=== PATIENT | male | born 1945 | race Caucasian/White ===

== ENCOUNTER 2017-08-26 13:53 | Inpatient (IN) | payer MEDICARE, BC, OTHER ==
[2017-08-26] MEDS: SOD CHLORIDE 0.9% 1,000 ML IV (16:53)
[2017-08-26] MEDS: KETOROLAC 15 MG INJ IV (16:53)
[2017-08-26 16:55] LABS: ADD MAN DIFF? NO
[2017-08-26 16:58] LABS: BASOPHIL # 0.1 10^3/ul (0.0-0.1); BASOPHILS % 0.3 % (0.0-2.0); EOSINOPHILS % 0.1 % (0.0-7.0); HEMATOCRIT 48.1 % (42.0-52.0); HEMOGLOBIN 15.5 g/dl (14.0-18.0); LYMPHOCYTES # 1.5 10^3/ul (0.8-2.9); LYMPHOCYTES % 9.4 % (15.0-51.0); MEAN CORPUSCULAR HEMOGLOBIN 27.9 pg (29.0-33.0); MEAN CORPUSCULAR HGB CONC 32.2 g/dl (32.0-37.0); MEAN CORPUSCULAR VOLUME 86.7 fl (82.0-101.0); MEAN PLATELET VOLUME 11.2 fl (7.4-10.4); MONOCYTE # 0.9 10^3/ul (0.3-0.9); MONOCYTES % 5.8 % (0.0-11.0); NEUTROPHIL # 13.1 10^3/ul (1.6-7.5); NEUTROPHILS % 83.7 % (39.0-77.0); PLATELET COUNT 189 10^3/UL (140-415); RED BLOOD COUNT 5.55 10^6/ul (4.70-6.10); RED CELL DISTRIBUTION WIDTH 14.2 % (11.5-14.5)
[2017-08-26 16:58] LABS: WHITE BLOOD COUNT 15.7 10^3/ul (4.8-10.8)
[2017-08-26 17:20] LABS: ANION GAP 16 (8-16); BLOOD UREA NITROGEN 21 mg/dl (7-20); CALCIUM 9.7 mg/dl (8.4-10.2); CARBON DIOXIDE 25 mmol/L (21-31); CHLORIDE 103 mmol/L (97-110); CREATININE 1.01 mg/dl (0.61-1.24); GLUCOSE 161 mg/dl (70-220); POTASSIUM 4.2 mmol/L (3.5-5.1); SODIUM 140 mmol/L (135-144)
[2017-08-26] MEDS ORDERED: ONDANSETRON 4 MG TAB PO (18:30)
[2017-08-26] MEDS ORDERED: NACL 0.9% 3 ML SYG IV (18:30)
[2017-08-26 18:32] LABS: INR 1.04; PROTIME 13.7 Sec (11.9-14.9); PT RATIO 1.1
[2017-08-26] MEDS: HYDROmorphONE 1 MG/ML SYG IV (18:36)
[2017-08-26] MEDS: ONDANSETRON 4 MG INJ IV (18:36)
[2017-08-26] MEDS ORDERED: GLUCAGON 1 MG INJ IM (19:00)
[2017-08-26] MEDS ORDERED: GLUCOSE GEL 15 GRAM TUBE PO ×2 (19:00)
[2017-08-26] MEDS ORDERED: GLUCOSE GEL 15 GRAM TUBE BUCCAL (19:00)
[2017-08-26] MEDS ORDERED: DEXTROSE 50% 50 ML SYRINGE IV ×2 (19:00)
[2017-08-26] MEDS: HYDROCODONE/APAP (5/325) TAB PO (19:51)
[2017-08-26] MEDS: HYDROmorphONE 0.5 MG/0.5 ML SYG IV (19:51)
[2017-08-26 20:09] LABS: ALKALINE PHOSPHATASE 79 IU/L (42-121)
[2017-08-26 20:41] LABS: PROSTATE SPECIFIC ANTIGEN 3.2 ng/ml (0.0-4.0)
[2017-08-26] MEDS: INSULIN ASPART [NOVOLOG] 3 ML PEN SC (21:00)
[2017-08-27] MEDS: ACCU-CHEK XX (02:00)
[2017-08-27] MEDS: HYDROCODONE/APAP (5/325) TAB PO (03:15)
[2017-08-27] MEDS: HYDROmorphONE 0.5 MG/0.5 ML SYG IV (05:50)
[2017-08-27 06:34] LABS: ADD MAN DIFF? NO
[2017-08-27 06:43] LABS: WHITE BLOOD COUNT 10.1 10^3/ul (4.8-10.8)
[2017-08-27 06:43] LABS: BASOPHIL # 0.1 10^3/ul (0.0-0.1); BASOPHILS % 0.6 % (0.0-2.0); EOSINOPHILS # 0.2 10^3/ul (0.0-0.5); HEMATOCRIT 43.9 % (42.0-52.0); HEMOGLOBIN 14.1 g/dl (14.0-18.0); LYMPHOCYTES # 1.4 10^3/ul (0.8-2.9); LYMPHOCYTES % 13.6 % (15.0-51.0); MEAN CORPUSCULAR HEMOGLOBIN 27.8 pg (29.0-33.0); MEAN CORPUSCULAR HGB CONC 32.1 g/dl (32.0-37.0); MEAN CORPUSCULAR VOLUME 86.4 fl (82.0-101.0); MEAN PLATELET VOLUME 11.7 fl (7.4-10.4); MONOCYTES % 9.7 % (0.0-11.0); NEUTROPHIL # 7.5 10^3/ul (1.6-7.5); NEUTROPHILS % 73.7 % (39.0-77.0); PLATELET COUNT 176 10^3/UL (140-415); RED BLOOD COUNT 5.08 10^6/ul (4.70-6.10); RED CELL DISTRIBUTION WIDTH 14.1 % (11.5-14.5)
[2017-08-27 07:00] LABS: HEMOGLOBIN A1C 6.8 % (0-5.9)
[2017-08-27 07:12] LABS: ALBUMIN 4.6 g/dl (3.3-4.9)
[2017-08-27 07:14] LABS: ANION GAP 12 (8-16); BLOOD UREA NITROGEN 18 mg/dl (7-20); CALCIUM 8.7 mg/dl (8.4-10.2); CARBON DIOXIDE 28 mmol/L (21-31); CHLORIDE 103 mmol/L (97-110); CREATININE 1.06 mg/dl (0.61-1.24); GLUCOSE 189 mg/dl (70-220); MAGNESIUM 1.9 mg/dl (1.7-2.5); PHOSPHORUS 3.5 mg/dl (2.5-4.9); POTASSIUM 4.1 mmol/L (3.5-5.1); SODIUM 139 mmol/L (135-144)
[2017-08-27] MEDS: INSULIN ASPART [NOVOLOG] 3 ML PEN SC ×4 (08:41→20:55)
[2017-08-27] MEDS: ENOXAPARIN 40 MG/0.4 ML SYG SC (08:44)
[2017-08-27] MEDS: HYDROmorphONE 1 MG/ML SYG IV ×3 (10:26→18:49)
[2017-08-27] MEDS: INFLUENZA VIRUS VACCINE 0.5 ML (DISPENSING) IM* (21:52)
[2017-08-28] MEDS: ACCU-CHEK XX (02:36)
[2017-08-28 05:31] LABS: PROTEIN, TOTAL 6.3 g/dL (6.1-8.1)
[2017-08-28] MEDS: INSULIN ASPART [NOVOLOG] 3 ML PEN SC ×4 (06:08→20:35)
[2017-08-28 06:33] LABS: ADD MAN DIFF? NO
[2017-08-28 06:40] LABS: WHITE BLOOD COUNT 11.4 10^3/ul (4.8-10.8)
[2017-08-28 06:40] LABS: BASOPHIL # 0.1 10^3/ul (0.0-0.1); BASOPHILS % 0.6 % (0.0-2.0); EOSINOPHILS # 0.2 10^3/ul (0.0-0.5); EOSINOPHILS % 1.8 % (0.0-7.0); HEMATOCRIT 46.8 % (42.0-52.0); HEMOGLOBIN 15.1 g/dl (14.0-18.0); LYMPHOCYTES # 1.2 10^3/ul (0.8-2.9); LYMPHOCYTES % 10.2 % (15.0-51.0); MEAN CORPUSCULAR HEMOGLOBIN 27.9 pg (29.0-33.0); MEAN CORPUSCULAR HGB CONC 32.3 g/dl (32.0-37.0); MEAN CORPUSCULAR VOLUME 86.5 fl (82.0-101.0); MEAN PLATELET VOLUME 11.6 fl (7.4-10.4); MONOCYTE # 1.1 10^3/ul (0.3-0.9); MONOCYTES % 9.7 % (0.0-11.0); NEUTROPHIL # 8.8 10^3/ul (1.6-7.5); NEUTROPHILS % 77.3 % (39.0-77.0); PLATELET COUNT 175 10^3/UL (140-415); RED BLOOD COUNT 5.41 10^6/ul (4.70-6.10); RED CELL DISTRIBUTION WIDTH 14.2 % (11.5-14.5)
[2017-08-28] MEDS ORDERED: HETASTARCH 6% NACL 500 ML BAG (07:00)
[2017-08-28 07:09] LABS: ANION GAP 11 (8-16); BLOOD UREA NITROGEN 17 mg/dl (7-20); CALCIUM 8.7 mg/dl (8.4-10.2); CARBON DIOXIDE 27 mmol/L (21-31); CHLORIDE 104 mmol/L (97-110); GLUCOSE 198 mg/dl (70-220); PHOSPHORUS 3.1 mg/dl (2.5-4.9); SODIUM 138 mmol/L (135-144)
[2017-08-28] MEDS: HYDROmorphONE 1 MG/ML SYG IV (08:33)
[2017-08-28] MEDS: ENOXAPARIN 40 MG/0.4 ML SYG SC (09:00)
[2017-08-28] MEDS ORDERED: PROPOFOL 20 ML ×2 (12:46→15:18)
[2017-08-28] MEDS ORDERED: ACETAMINOPHEN 1000MG/100ML IV 100 ML (12:46)
[2017-08-28] MEDS ORDERED: CEFAZOLIN 1 GM INJ (12:46)
[2017-08-28] MEDS ORDERED: MIDAZOLAM 1 MG/ML 2 ML INJ (12:47)
[2017-08-28] MEDS ORDERED: morphine SULFATE/PF (10 MG/10 ML) INJ (12:47)
[2017-08-28] MEDS ORDERED: ROPIVACAINE 0.5 % 30 ML VIAL (12:47)
[2017-08-28 13:43] LABS: CREATININE, RANDOM URINE 172 mg/dL (20-370); PROTEIN/CREATININE RATIO 99 mg/g creat (22-128)
[2017-08-28] MEDS ORDERED: PHENYLephrine (100 MCG/ML) 5ML SYG ×2 (14:20→15:16)
[2017-08-28] MEDS: POLYMYXIN/BACITRACIN 1L IRRIG IRR (14:33)
[2017-08-28] MEDS ORDERED: TRANEXAMIC ACID 1,000 MG/10 ML VIAL (14:49)
[2017-08-28] MEDS ORDERED: ONDANSETRON 4 MG INJ (14:56)
[2017-08-28] MEDS ORDERED: KETOROLAC 30 MG INJ (14:56)
[2017-08-28] MEDS ORDERED: DEXAMETHASONE 4 MG/ML 1 ML INJ (14:56)
[2017-08-28] MEDS ORDERED: METOCLOPRAMIDE 10 MG INJ (14:56)
[2017-08-28] MEDS ORDERED: METOCLOPRAMIDE 10 MG INJ IV (15:30)
[2017-08-28] MEDS ORDERED: hydrALAzine 20 MG INJ IV (15:30)
[2017-08-28] MEDS ORDERED: OXYCODONE/ACETAMINOPHEN (5/325) TAB PO ×2 (15:30)
[2017-08-28] MEDS ORDERED: ACETAMINOPHEN 500 MG TAB PO (15:30)
[2017-08-28] MEDS ORDERED: NALOXONE (0.4 MG/ML) INJ IV ×2 (15:30)
[2017-08-28] MEDS ORDERED: HYDROmorphONE 0.5 MG/0.5 ML SYG IV ×3 (15:30→16:30)
[2017-08-28] MEDS ORDERED: ALBUMIN HUMAN 5% 250 ML IV (15:30)
[2017-08-28] MEDS ORDERED: LABETALOL HCL 20MG INJ IV (15:30)
[2017-08-28] MEDS ORDERED: HYDROmorphONE (0.2 MG/ML) 10ML SYG IV ×3 (15:30)
[2017-08-28] MEDS ORDERED: DIPHENHYDRAMINE 50 MG INJ IV (15:30)
[2017-08-28] MEDS ORDERED: NALBUPHINE HCL (10 MG/1 ML) INJ IV (15:30)
[2017-08-28] MEDS ORDERED: FENTAnyl 50 MCG/ML VIAL IV ×3 (15:30)
[2017-08-28] MEDS ORDERED: morphine 2 MG INJ IV ×3 (15:30→16:30)
[2017-08-28] MEDS ORDERED: ONDANSETRON 4 MG INJ IV (15:30)
[2017-08-28] MEDS ORDERED: EPHEDrine SULFATE 50 MG/5 ML SYG IV (15:30)
[2017-08-28] MEDS ORDERED: HYDROCODONE/APAP (5/325) TAB PO (15:30)
[2017-08-28 15:56] LABS: ABNORMAL PROTEIN BAND 1 0.4 g/dL (NONE DETECTED); ALBUMIN 3.8 g/dL (3.8-4.8); ALPHA-1-GLOBULINS 0.3 g/dL (0.2-0.3); ALPHA-2-GLOBULINS 0.6 g/dL (0.5-0.9); BETA 2 GLOBULINS 0.3 g/dL (0.2-0.5); BETA GLOBULINS 0.4 g/dL (0.4-0.6); GAMMA GLOBULINS 0.9 g/dL (0.8-1.7)
[2017-08-28] MEDS ORDERED: NACL 0.9% 3 ML SYG IV (16:00)
[2017-08-28] MEDS: SOD CHLORIDE 0.9% 1,000 ML IV (16:00)
[2017-08-28] MEDS: DIPHENHYDRAMINE 50 MG INJ IV (16:33)
[2017-08-28] MEDS: MEPERIDINE 25 MG INJ IV (16:47)
[2017-08-28] MEDS: ONDANSETRON 4 MG INJ IV (16:48)
[2017-08-28] MEDS ORDERED: CEFAZOLIN 1 GM/50 ML (PMX) 50 ML IVPB (17:00)
[2017-08-28 17:18] LABS: ADD MAN DIFF? NO
[2017-08-28 17:25] LABS: BASOPHIL # 0.1 10^3/ul (0.0-0.1); BASOPHILS % 0.4 % (0.0-2.0); EOSINOPHILS # 0.2 10^3/ul (0.0-0.5); EOSINOPHILS % 1.2 % (0.0-7.0); HEMATOCRIT 44.3 % (42.0-52.0); LYMPHOCYTES # 0.9 10^3/ul (0.8-2.9); LYMPHOCYTES % 7.7 % (15.0-51.0); MEAN CORPUSCULAR HEMOGLOBIN 28.1 pg (29.0-33.0); MEAN CORPUSCULAR HGB CONC 31.6 g/dl (32.0-37.0); MEAN CORPUSCULAR VOLUME 88.8 fl (82.0-101.0); MEAN PLATELET VOLUME 11.8 fl (7.4-10.4); MONOCYTE # 0.6 10^3/ul (0.3-0.9); MONOCYTES % 4.6 % (0.0-11.0); NEUTROPHIL # 10.3 10^3/ul (1.6-7.5); NEUTROPHILS % 85.5 % (39.0-77.0); PLATELET COUNT 169 10^3/UL (140-415); RED BLOOD COUNT 4.99 10^6/ul (4.70-6.10)
[2017-08-28 17:40] LABS: ANION GAP 15 (8-16); BLOOD UREA NITROGEN 18 mg/dl (7-20); CALCIUM 7.8 mg/dl (8.4-10.2); CARBON DIOXIDE 24 mmol/L (21-31); CHLORIDE 107 mmol/L (97-110); CREATININE 1.18 mg/dl (0.61-1.24); GLUCOSE 154 mg/dl (70-220); POTASSIUM 4.1 mmol/L (3.5-5.1); SODIUM 142 mmol/L (135-144)
[2017-08-28] MEDS: CEFAZOLIN 1 GM/50 ML (PMX) 50 ML IVPB (20:23)
[2017-08-29] MEDS: ACCU-CHEK XX (02:00)
[2017-08-29] MEDS: morphine 2 MG INJ IV (05:07)
[2017-08-29] MEDS: CEFAZOLIN 1 GM/50 ML (PMX) 50 ML IVPB ×2 (05:08→12:09)
[2017-08-29] MEDS: SOD CHLORIDE 0.9% 1,000 ML IV (05:25)
[2017-08-29 08:07] LABS: ADD UMIC YES; UR ASCORBIC ACID 20 mg/dL (NEGATIVE); UR BACTERIA FEW /HPF (NONE SEEN); UR BILIRUBIN (Dip) NEGATIVE (NEGATIVE); UR BLOOD (Dip) 2+ mg/dL (NEGATIVE); UR CLARITY CLEAR (CLEAR); UR COLOR YELLOW (YELLOW); UR GLUCOSE (Dip) 3+ mg/dL (NEGATIVE); UR KETONES (Dip) NEGATIVE (NEGATIVE); UR LEUKOCYTE ESTERASE (Dip) NEGATIVE Leu/ul (NEGATIVE); UR NITRITE (Dip) NEGATIVE (NEGATIVE); UR RBC 14 /HPF (0-5); UR SPECIFIC GRAVITY (Dip) 1.029 (1.003-1.030); UR TOTAL PROTEIN (Dip) 1+ mg/dl (NEGATIVE); UR UROBILINOGEN (Dip) NEGATIVE (NEGATIVE); UR WBC 2 /HPF (0-5)
[2017-08-29] MEDS: INSULIN ASPART [NOVOLOG] 3 ML PEN SC ×4 (08:09→21:07)
[2017-08-29] MEDS: ENOXAPARIN 40 MG/0.4 ML SYG SC (08:10)
[2017-08-29] MEDS ORDERED: BISACODYL (EC) 5 MG TAB PO (13:00)
[2017-08-29] MEDS: DOCUSATE SODIUM 100 MG CAP PO (21:06)
[2017-08-29] MEDS: ACETAMINOPHEN 325 MG TAB PO (21:08)
[2017-08-29] MEDS: METOPROLOL 25 MG TAB PO (23:28)
[2017-08-30] MEDS: ACCU-CHEK XX (02:00)
[2017-08-30 06:27] LABS: ADD MAN DIFF? NO
[2017-08-30 06:33] LABS: WHITE BLOOD COUNT 9.4 10^3/ul (4.8-10.8)
[2017-08-30 06:33] LABS: BASOPHILS % 0.4 % (0.0-2.0); EOSINOPHILS # 0.1 10^3/ul (0.0-0.5); EOSINOPHILS % 1.3 % (0.0-7.0); HEMATOCRIT 37.7 % (42.0-52.0); HEMOGLOBIN 12.1 g/dl (14.0-18.0); LYMPHOCYTES % 10.2 % (15.0-51.0); MEAN CORPUSCULAR HEMOGLOBIN 28.1 pg (29.0-33.0); MEAN CORPUSCULAR HGB CONC 32.1 g/dl (32.0-37.0); MEAN CORPUSCULAR VOLUME 87.5 fl (82.0-101.0); MEAN PLATELET VOLUME 11.9 fl (7.4-10.4); MONOCYTES % 10.7 % (0.0-11.0); NEUTROPHIL # 7.2 10^3/ul (1.6-7.5); NEUTROPHILS % 76.7 % (39.0-77.0); PLATELET COUNT 156 10^3/UL (140-415); RED BLOOD COUNT 4.31 10^6/ul (4.70-6.10); RED CELL DISTRIBUTION WIDTH 13.7 % (11.5-14.5)
[2017-08-30 06:35] LABS: ALANINE AMINOTRANSFERASE 33 IU/L (13-69); ALBUMIN/GLOBULIN RATIO 1.07; ALKALINE PHOSPHATASE 57 IU/L (42-121); ANION GAP 14 (8-16); ASPARTATE AMINO TRANSFERASE 32 IU/L (15-46); BLOOD UREA NITROGEN 14 mg/dl (7-20); CARBON DIOXIDE 27 mmol/L (21-31); CHLORIDE 108 mmol/L (97-110); CREATININE 0.94 mg/dl (0.61-1.24); GLUCOSE 209 mg/dl (70-220); PHOSPHORUS 2.7 mg/dl (2.5-4.9); POTASSIUM 3.7 mmol/L (3.5-5.1); SODIUM 145 mmol/L (135-144); TOTAL PROTEIN 5.8 g/dl (6.1-8.1)
[2017-08-30] MEDS: INSULIN ASPART [NOVOLOG] 3 ML PEN SC ×4 (08:35→21:18)
[2017-08-30] MEDS: ENOXAPARIN 40 MG/0.4 ML SYG SC (08:36)
[2017-08-30] MEDS: AMLODIPINE 5 MG TAB PO (08:37)
[2017-08-30] MEDS: ACETAMINOPHEN 325 MG TAB PO (09:42)
[2017-08-30] MEDS: HYDROCODONE/APAP (5/325) TAB PO ×2 (14:48→21:19)
[2017-08-30] MEDS: DOCUSATE SODIUM 100 MG CAP PO (21:16)
[2017-08-31] MEDS: ACCU-CHEK XX (02:16)
[2017-08-31] MEDS: glipiZIDE 5 MG TAB PO ×2 (07:53→17:34)
[2017-08-31] MEDS: INSULIN ASPART [NOVOLOG] 3 ML PEN SC ×4 (07:57→20:41)
[2017-08-31] MEDS: ENOXAPARIN 40 MG/0.4 ML SYG SC (09:09)
[2017-08-31] MEDS: AMLODIPINE 5 MG TAB PO (09:10)
[2017-08-31] MEDS ORDERED: HYDROmorphONE 2 MG/ML SYG IV (13:30)
[2017-08-31] MEDS: DOCUSATE SODIUM 100 MG CAP PO (20:38)
[2017-08-31] MEDS: HYDROCODONE/APAP (5/325) TAB PO (20:43)
[2017-09-01] MEDS: ACCU-CHEK XX (02:39)
[2017-09-01] MEDS: glipiZIDE 5 MG TAB PO ×2 (08:34→17:51)
[2017-09-01] MEDS: AMLODIPINE 5 MG TAB PO (08:34)
[2017-09-01] MEDS: INSULIN ASPART [NOVOLOG] 3 ML PEN SC ×4 (08:36→20:48)
[2017-09-01] MEDS: ENOXAPARIN 40 MG/0.4 ML SYG SC (08:36)
[2017-09-01] MEDS: HYDROCODONE/APAP (5/325) TAB PO ×2 (10:06→20:42)
[2017-09-01] MEDS ORDERED: HYDROmorphONE 0.5 MG/0.5 ML SYG IV (11:30)
[2017-09-01] MEDS: DOCUSATE SODIUM 100 MG CAP PO (20:42)
[2017-09-02] MEDS: ACCU-CHEK XX (02:00)
[2017-09-02] MEDS: glipiZIDE 5 MG TAB PO (08:01)
[2017-09-02] MEDS: HYDROCODONE/APAP (5/325) TAB PO (08:01)
[2017-09-02] MEDS: INSULIN ASPART [NOVOLOG] 3 ML PEN SC ×2 (08:05→12:10)
[2017-09-02] MEDS: AMLODIPINE 5 MG TAB PO (08:59)
[2017-09-02] MEDS: ENOXAPARIN 40 MG/0.4 ML SYG SC (09:02)
== END 2017-09-02 14:00 | DRG 470 ==
LOC: E/R 13:53 → PP2 18:10
PROC: 0SRR0JZ Replacement of Right Hip Joint, Femoral Surface with Synthetic Substitute, Open Approach (ICD-10-PCS; principal; 2017-08-28 13:00)
DX: S72.011A Unspecified intracapsular fracture of right femur, initial encounter for closed fracture (principal); E11.9 Type 2 diabetes mellitus without complications; D72.829 Elevated white blood cell count, unspecified; I10 Essential (primary) hypertension; M25.461 Effusion, right knee; W18.30XA Fall on same level, unspecified, initial encounter; R33.9 Retention of urine, unspecified
CPT/HCPCS: 71045; 72170; 73510; 73562; 80048; 80053; 81001; 82040; 82306; 82570; 82962; 83036; 83735; 84075; 84100; 84153; 84154; 84155; 84156; 84165; 84166; 85025; 85610; 87086; 88304; 88311; 90686; 93005; 96374; 96375; 97110; 97116; 97163; 97166; 97530; 97535; 99285-25